=== PATIENT | female | born 1955 | race Caucasian/White ===

== ENCOUNTER 2024-06-25 07:10 | Emergency (ER) | payer MEDICAID, OTHER ==
--- OUTSIDE RECORDS SUMMARY | 2024-06-25 07:12 | XMS REPORT | Clinical Summary ---
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 Active metoprolol tartrate (LOPRESSOR) 25 mg tablet Take 25 mg by mouth daily. Active levothyroxine (SYNTHROID, LEVOTHROID) 50 mcg tablet Take 50 mcg by mouth daily. Active simvastatin (ZOCOR) 10 mg tablet Take 10 mg by mouth at bedtime. Active ezetimibe (ZETIA) 10 mg tablet Take 10 mg by mouth daily. Active pantoprazole (PROTONIX) 40 mg EC tablet Take 40 mg by mouth. Active aspirin 81 mg EC tablet Take 81 mg by mouth daily. Active vitamin B complex capsule Take by mouth. Active fish oil-omega-3 fatty acids 300-1,000 mg capsule Take 2 g by mouth daily. Active cholecalciferol, vitamin D3, 1,000 units tablet Take 1,000 Units by mouth daily. Active cephalexin (KEFLEX) 500 mg capsule Take 500 mg by mouth twice daily. Active Active Problems Problem Noted Date Diagnosed Date Permanent atrial fibrillation 05/16/2017 Overview: 05/29 Regulatory Import Hypothyroidism 05/16/2017 Essential (primary) hypertension 05/16/2017 Obstructive sleep apnea 05/16/2017 Hyperlipidemia 05/16/2017 Mammography abnormal 05/12/2017 Surgical History Surgery Date Site/Laterality Comments BACK SURGERY 03/02/2005 lamenectomy COLONOSCOPY BACK SURGERY 11/17/2016 fusion TONSILLECTOMY HEEL SPUR SURGERY Medical History Medical History Date Comments Hypertension 1996 Hyperlipidemia Allergic rhinitis Sinusitis Gastric reflux Renal stone Urinary tract infection Menopause Endometriosis Arthritis Disorder of thyroid gland H/O: migraine Obstructive sleep apnea syndrome uses CPAP Atrial fibrillation rate control led with rythmol Family History Medical History Relation Name Comments Hypertension Father Hypertension Mother Stroke Mother Relation Name Status Comments Father Mother Social History Tobacco Use Types Packs/Day Years Used Date Smoking Tobacco: Never Smokeless Tobacco: Never Alcohol Use Standard Drinks/Week Comments Yes 0 (1 standard drink = 0.6 oz pur e alcohol) Sex and Gender Information Value Date Recorded Sex Assigned at Not on file Gender Identity Not on file Sexual Orientation Not on file Obstetrics History Para Term AB IAB SAB Ectopic Multiple Livin g Live Births 2 2 Date Outcome GA Total Labor Labor/2nd/3rd Weight Sex Type Anes PTL Brittny A1 A5 Name Clin Para Para Comments Menarche 11 Parity 25 Natural menopause in her 40s HRT use x 1 yr OCP use x 5 yrs Breast fed x 4 mo Plan of Treatment Health Maintenance Due Date Last Done Comments Pneumococcal Vaccine: 65+ Years (1 of - PCV) 020 COVID-19 Vaccine (2023- season) 2024 Influenza Vaccine (#1) 2024 Care Teams Table Top Tile Setter Relationship Specialty Start Date End Date Harjeet Balderas MD [address] [place] [address] [email or web address] PCP - General Breast Surgery 05/03/17 Ankur Best MD [address] [place] [address] [email or web address] PCP - External Referring Family Practice 05/03/17
[2024-06-25] MEDS ORDERED: HYDROCODONE/APAP 5/325 MG TAB ONE (07:57)
[2024-06-25] MEDS ORDERED: ACETAMINOPHEN 500 MG TAB ONE (08:04)
--- NOTE | 2024-06-25 08:28 | RAD REPORT ---
EXAMINATION: CT CERVICAL SPINE WITHOUT CONTRAST HISTORY: [facility] COMPARISON: None TECHNIQUE: Multiple contiguous axial images were obtained in a CT of the cervical spine without IV co ntrast. Sagittal and coronal reformats were performed. One or more of the following dose reduction techniques were used: Automated exposure control, adjustment of the mA and kV according to patient si ze, and iterative reconstruction. Unless otherwise specified, incidental findings do not require dedicated imaging follow-up. FINDINGS: The vertebral bodies demonstrate normal height with a mild degenerative dextroscoliosis without fract ure or subluxation. Mild spondylosis is present mid and lower cervical levels disc thinning posterior osteophyte. No prevertebral soft tissue swelling is seen. The posterior facets are well aligned. Normal alignment of the skull base with the cervical spine is seen. The odontoid appears normal and the lateral masses are symmetric. The lung apices are unremarkable. Bilateral carotid atherosclerosis. IMPRESSION: No evidence of acute osseous abnormality of the cervical spine. Mild degenerative spondylosis with dextroscoliosis mid and lower cervical spine.
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
[2024-06-25 09:25] VITALS: BP 154/89; O2SAT 100
== END 2024-06-25 09:11 | disposition home or self-care (01) ==
LOC: ER 07:10
DX: M54.2 Cervicalgia (principal); M25.511 Pain in right shoulder; S20.01XA Contusion of right breast, initial encounter; V59.40XA Driver of pick-up truck or van injured in collision with unspecified motor vehicles in traffic accident, initial encounter; I48.91 Unspecified atrial fibrillation
CPT/HCPCS: 71046; 72125; 99283